=== PATIENT | male | born 1990 | race Two or more races ===

== ENCOUNTER 2020-01-16 20:24 | Emergency (ER) | payer SELFPAY ==
--- NOTE | 2020-01-16 20:39 | EDM.PDOC ---
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 The patient was knocked down to the ground and was not completely unconscious but he was stunned and he stated he could not move. He denies any headache, he states that his neck is stiff secondary to some swelling on the right side. He denies any paresthesias, he denies any weakness, he denies any difficulty walking. He denies any nausea or vomiting Injury occurred about 3.5 hrs [employer]. . - Related Data Allergies Allergy/AdvReac Type Severity Reaction Status Date / Time No Known Allergies Allergy Verified 01/16/20 20:33 Home Meds: Home Meds . [No Known Home Meds] 01/16/20 [History] Review of Systems - Review of Systems Review Of Systems: See Below (Positive for head trauma, negative for headache, positive for "stiff neck", negative for weakness, negative for paresthesias, negative difficulty walking, negative for nausea, all other Positives and pertinent negatives as per HPI. All other pertinent systems were reviewed and are negative) ED EXAM, GENERAL - Physical Exam Exam: See Below Free Text/Narrative:: Constitutional: No acute distress, Non-toxic appearance, healthy and physically fit appearing male. HEENT: Normocephalic, on the right posterior lateral portion of the patient's head just posterior to the ear there is a large ecchymotic hematoma, pupils are equal round reactive to light, extraocular muscles intact, left ear is unremarkable, the right external ear is normal, the external canal is normal, there is a large right-sided hemotympanum, posterior 2 cm laceration - partial thickness and bleeding is controlled. Neck: No midline cervical tenderness, decreased range of motion secondary to right posterior lateral neck swelling and pain, No stridor, trachea midline Respiratory: No respiratory distress, No tachypnea Cardiovascular: Deferred Gastrointestinal: Deferred Genital / Urinary: Deferred Musculoskeletal: All four extremities present and atraumatic Back: FROM Integument: Warm, Dry, Color is ethnicity appropriate, No rash. Neuro: Alert, Awake, oriented x3, cranial nerves grossly intact, normal gait, motor strength equal in the bilateral upper and lower extremities at 5/5, no focal deficits noted Psych: Affect, Judgement, mood normal Course - Vital Signs Text/Narrative:: Based on the physical exam, the patient most likely has a basilar skull fracture. Tetanus is up-to-date. CT scan of the head and neck are negative for any cervical spinal fractures, or spondylolisthesis or any acute process. CT scan of the head does not show any intracranial injuries, most pacifically a subarachnoid hemorrhage, epidural hematoma, subdural hematoma, hydrocephalus, etc. The patient does have an isolated comminuted mastoid skull fracture which is consistent with the physical exam. I talked with the patient in detail, and he is 1 of the very few patients with this type of injury who can be discharged home with close follow-up. The patient is not having a headache, no neurological findings, it is currently about 5-1/2 hours after the injury and he is still neurologically intact. He is not showing any concussive symptoms per history or exam. He has no concerning findings per physical or history of a spinal cord contusion. For now , I will take the patient off of work, and he has been instructed to follow-up closely with Workmen's Comp. within the next 48 hours. He can use ibuprofen, Tylenol and ice over the injury and he is not to perform any strenuous activities. If he develops any fevers and headaches, unusual headaches, headaches and nausea and vomiting or other concerning complaints then he should return to the ER promptly. And finally, prophylactic antibiotics have never been proven to prevent any type of meningitis, encephalitis, etc. so they will not be provided at this time. Last Recorded V/S: Last Vital Signs Temp 37.4 C 01/16/20 20:34 Pulse 104 H 01/16/20 20:34 Resp 18 01/16/20 20:34 BP 114/84 01/16/20 20:34 Pulse Ox 97 01/16/20 20:34 - Orders/Labs/Meds Orders: Active Orders 24 hr Category Date Time Status Admission Status [Patient Status] [ADT] Stat ADT 01/16/20 21:19 Active Departure - Departure Time of Disposition: 22:03 Disposition: Home, Self-Care 01 Condition: Good Clinical Impression: Skull fracture, Scalp laceration, Scalp hematoma - Discharge Information *PRESCRIPTION DRUG MONITORING PROGRAM REVIEWED*: Not Applicable *COPY OF PRESCRIPTION DRUG MONITORING REPORT IN PATIENT FLORINDA: Not Applicable Forms: ED Department Discharge Additional Instructions: Take ibuprofen and Tylenol and use lots of ice for pain control. Follow-up with your Workmen's Comp. within the next 48 hours. No work until cleared by your doctors. No strenuous activity until cleared by your doctors. Return to the ER promptly if you develop weakness in the extremities, fevers and headaches, unusual headaches, headaches and vomiting or any other concerns. Sepsis Event Note - Focused Exam Vital Signs: Vital Signs Temp Pulse Resp BP Pulse Ox 01/16/20 20:34 37.4 C 104 H 18 114/84 97 Date Exam was Performed: 01/16/20 Time Exam was Performed: 21:53 - My Orders Last 24 Hours: My Active Orders 01/16/20 21:19 Admission Status [Patient Status] [ADT] Stat - Assessment/Plan Last 24 Hours: My Active Orders 01/16/20 21:19 Admission Status [Patient Status] [ADT] Stat
--- NOTE | 2020-01-16 21:26 | CT ---
INDICATIONS: Trauma. Large piece of iron hit back of head. Knocked out. Ringing in right ear. TECHNIQUE: CT cervical spine without contrast. COMPARISON: CT head without contrast same day. FINDINGS: No acute fracture, malalignment or significant bony central canal compromise in the cervical spine. No suspicious lytic or sclerotic osseous lesion demonstrated. There is a comminuted impacted fracture of the posterior right mastoid with associated partial mastoid and middle ear cavity opacification. Opacification is present about the ossicular chain, most pronounced in the region of the stapes. No definite ossicular chain disruption. Soft tissue swelling and gas adjacent to the mastoid fracture. Paraspinal soft tissues elsewhere as imaged are unremarkable. Visualized lung apices are clear. IMPRESSION: 1. No acute cervical spine fracture. 2. Comminuted impacted fracture of the right mastoid. There is associated partial opacification of the right mastoid air cells and middle ear cavity. Opacification is present about the ossicular chain and most pronounced in the region of the stapes. Dictated by Clemente Triana MD @ 01/16/2020 9:25:01 PM Dictated by: Clemente Triana MD @ 01/16/2020 21:25:17 (Electronically Signed)
--- NOTE | 2020-01-16 21:30 | CT ---
INDICATIONS: Trauma. Piece of iron hit back of head. Knocked unconscious. Ringing in right ear. TECHNIQUE: CT head without contrast. COMPARISON: CT cervical spine same day. FINDINGS: There is no mass effect or midline shift. No hydrocephalus. No CT evidence of acute hemorrhage or infarction. No abnormal extra-axial fluid collection. Impacted fracture of the right mastoid is again demonstrated. There is partial opacification of the right mastoid air cells and middle ear cavity. Opacification about the ossicular chain is most pronounced in the region of the stapes. Soft tissue swelling and gas in the region of the right mastoid. No additional calvarial fracture demonstrated. Remaining paranasal sinuses and orbits as imaged are unremarkable. IMPRESSION: 1. No acute intracranial abnormality. 2. Right mastoid fracture with partial opacification of the mastoid air cells and middle ear cavity, to include opacification in the region of the ossicular chain which is most pronounced in the region of the stapes. Dictated by Clemente Triana MD @ 01/16/2020 9:29:40 PM Dictated by: Clemente Triana MD @ 01/16/2020 21:29:56 (Electronically Signed)
== END 2020-01-16 22:12 | disposition home or self-care (01) ==
LOC: MW.ED 20:24
DX: S02.19XA Other fracture of base of skull, initial encounter for closed fracture (principal); S01.01XA Laceration without foreign body of scalp, initial encounter; W20.8XXA Other cause of strike by thrown, projected or falling object, initial encounter; Y99.0 Civilian activity done for income or pay
CPT/HCPCS: 70450; 70450-26; 72125; 72125-26; 99283-25; 99284